=== PATIENT | female | born 1960 | race African-American/Black ===

== ENCOUNTER 2016-08-01 17:44 | Emergency (ER) | payer MEDICARE, MEDICAID ==
[~2016-08-01] VITALS: Ht 160 cm; Wt 94.0 kg
[~2016-08-01 17:44] MED LIST: UNKNOWN MEDS
[2016-08-01] MEDS ORDERED: CYCLOBENZAPRINE 10MG TABLET PO ONE (19:15)
[2016-08-01] MEDS ORDERED: KETOROLAC 60MG/2ML VIAL IM ONE (19:15)
[2016-08-01 20:09] VITALS: BP 130/66
== END 2016-08-01 20:15 | disposition home or self-care (01) ==
LOC: ER 17:44
DX: M54.32 Sciatica, left side (principal); M19.90 Unspecified osteoarthritis, unspecified site; I10 Essential (primary) hypertension; F17.200 Nicotine dependence, unspecified, uncomplicated; G89.29 Other chronic pain
CPT/HCPCS: 96372; 99283; J1885